=== PATIENT | female | born 1975 | race Caucasian/White ===

== ENCOUNTER 2018-02-15 01:23 | Inpatient (IN) ==
[2018-02-15] MEDS ORDERED: Aluminum/Magnesium/Simethacone Susp 30 ML UDC PO PRN (04:48)
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
--- NOTE | 2018-02-15 14:02 | P.CON ---
History of Present Illness Service: Hospitalist Consult date: 02/15/18 Requesting Physician: Deni Henriquez Reason for Consult: Medical evaluation. Primary Care Provider: UNKNOWN Chief Complaint: Left elbow/shoulder pain History of Present Illness: Ms. Severino is a pleasant 42 year old female who was admitted to psychiatry unit under lizama act due to her attempt to cause self-harm. Hospitalist service was consulted for medical evaluation. Patient reports history of fibromyalgia and chronic neck/back pain. Patient was transferred to [facility] from [facility] where she was very agitated when they tried to give her ativan and geodon. During this struggle, she developed left shoulder and elbow pain. She has her left arm in one position and afraid to move due to pain. At the time of this interview, she denies any chest pain, shortness of breath, abdominal pain, fever, chills. No changes in bowel or bladder habits. Past Medical history: Fibromyalgia, chronic neck/back pain Past surgical history: Wrist surgery, right arm, knee surgery, , tubal ligation Social history: Smokes 1/2 ppd, denies using alcohol or illicit drugs. Family history: Mother with heart disease. Review of Systems All other systems reviewed negative except as stated in HPI PMFSH - History History Provided By: Patient - Tobacco History Second Hand Smoke Exposure: Yes Tobacco Use In Past 30 Days: Yes Smoking Status: Current every day smoker Tobacco Type: Cigarettes - Alcohol History How Often Do You Have a Drink Containing Alcohol: 2 to 4 times a month - Substance Use History Substance History: No History of Abuse - Substance Use Type Other Comment: Patient stated that she has past history with drugs. Patient was unable or unwilling to disclose what type of drug. - Travel History Recent Travel in the [place] Within the Last 8 Weeks: No Recent Travel Out of the Country Within the Last 8 Weeks: No - Immunization History Tetanus Immunization: Unsure Hx Influenza Vaccine This Season: Yes Medications and Allergies Active Medications: Active Medications Acetaminophen (Tylenol) 650 mg PO Q4H PRN PRN Reason: Pain 1-5 or Temp >101F Al Hydrox/Mg Hydrox/Simethicone (Mag-Al Plus Susp Liq) 30 ml PO Q6H PRN PRN Reason: DYSPEPSIA Al Hydroxide/Mg Hydroxide (Milk Of Magnesia Liq) 30 ml PO DAILY PRN PRN Reason: CONSTIPATION Aripiprazole (Abilify) 5 mg PO DAILY [facility] Diphenhydramine HCl (Benadryl) 50 mg PO Q6H PRN PRN Reason: For mild anxiety and/or EPS Diphenhydramine HCl (Benadryl Inj) 50 mg IM Q6H PRN PRN Reason: For mild anxiety and/or EPS Hydroxyzine HCl (Atarax) 50 mg PO Q6H PRN PRN Reason: ANXIETY Nicotine (Habitrol 21 Mg Patch.24 Hr) 1 patch T-DERMAL DAILY [facility] Last Admin: 02/15/18 09:02 Dose: 1 patch Patch Removal (Remove Old Patch) 1 each T-DERMAL HS [facility] Prazosin HCl (Minipress) 1 mg PO HS [facility] Allergies Allergy/AdvReac Type Severity Reaction Status Date / Time codeine Allergy Severe Unverified 10/22/16 22:20 penicillin G Allergy Severe Unverified 10/22/16 22:20 Physical Exam Vital signs: Vital Signs 02/15/18 05:12 Temperature 98.4 F Pulse Rate 82 Respiratory Rate 17 Blood Pressure 142/88 H Pulse Oximetry 96 Intake & Output 02/14/18 02/15/18 02/15/18 18:59 06:59 18:59 Weight 97.2 kg Other: Weight On Admission 97.2 kg Narrative: GENERAL: This is a well-nourished, well-developed patient, in no apparent distress. SKIN: No rashes, ecchymoses or lesions. Warm and dry. HEAD: Atraumatic. Normocephalic. No temporal or scalp tenderness. EYES: Pupils equal round and reactive. No injection or drainage. ENT: Nose without bleeding, purulent drainage or septal hematoma. Airway patent. NECK: Trachea midline. No lymphadenopathy. Supple, nontender, no meningeal signs. CARDIOVASCULAR: Regular rate and rhythm without murmurs, gallops, or rubs. No JVD. RESPIRATORY: Clear to auscultation. Breath sounds equal bilaterally. No wheezes , rales, or rhonchi. GASTROINTESTINAL: Abdomen soft, non-tender, nondistended. No guarding. MUSCULOSKELETAL: Extremities without clubbing, cyanosis, or edema. Pain on movement of left elbow and shoulder joint. No swelling/erythema noted. Skin abrasion noted near the left wrist where she attempted to hurt herself. NEUROLOGICAL: Awake and alert. Cranial nerves II through XII intact. No focal neurological deficits. Normal speech. Assessment and Plan - Plan Ms. Severino is a pleasant 42 year old female who was admitted to [facility] psychiatry unit from [facility] under lizama act due to attempt to cause self harm. Suicidal attempt - management per psychiatry team Left elbow and shoulder pain -I encouraged patient to try to move her elbow and shoulder joint gently and gradually increase movements. -Will start patient on Naproxen 375mg Q8hrs along with Protonix. -I would like to avoid any narcotics if possible. Chronic neck/back pain -Acetaminophen as needed. Other: Will obtain CBC, BMP. Thank you for the consult. We will continue to follow this patient with you.
[2018-02-15] MEDS: ARIPiprazole 5 MG Tablet PO SCH (14:41)
[2018-02-15] MEDS: Acetaminophen 325 MG Tablet PO PRN ×2 (14:41→18:04)
[2018-02-15] MEDS ORDERED: Prazosin HCl 1 MG Capsule PO SCH (21:00)
[2018-02-15] MEDS: Naproxen 375 MG Tablet PO SCH (21:01)
[2018-02-16] MEDS: ARIPiprazole 5 MG Tablet PO SCH (08:32)
[2018-02-16] MEDS: Naproxen 375 MG Tablet PO SCH ×3 (08:33→22:24)
[2018-02-16] MEDS: amLODIPine 5 MG Tablet PO SCH (08:33)
[2018-02-16 08:52] LABS: Baso % (Auto) 0.5 % (0.0-2.0); Eos # (Auto) 0.1 th/mm3 (0.0-0.4); Eos % (Auto) 0.7 % (0.0-4.0); Hematocrit 38.2 % (35.0-46.0); Hemoglobin 13.1 gm/dL (11.6-15.3); Lymph # (Auto) 1.3 th/mm3 (1.0-4.8); Lymph % (Auto) 16.6 % (9.0-44.0); Mean Corpuscular HGB Conc 34.2 % (32.0-36.0); Mean Corpuscular Hemoglobin 30.2 pg (27.0-34.0); Mean Corpuscular Volume 88.3 fL (80.0-100.0); Mean Platelet Volume 8.9 fL (7.0-11.0); Mono # (Auto) 0.6 th/mm3 (0.0-0.9); Mono % (Auto) 7.9 % (0.0-8.0); Neut # (Auto) 5.7 th/mm3 (1.8-7.7); Neut % (Auto) 74.3 % (16.0-70.0); Platelet Count 245 th/mm3 (150-450); Red Blood Count 4.33 mil/mm3 (4.00-5.30); Red Cell Distribution Width 13.6 % (11.6-17.2); White Blood Count 7.6 th/mm3 (4.0-11.0)
[2018-02-16 09:17] LABS: Carbon Dioxide 27.4 meq/L (21.0-32.0)
[2018-02-16] MEDS: Gabapentin 400 MG Capsule PO SCH ×2 (13:08→17:37)
--- NOTE | 2018-02-16 16:08 | P.PNPSY ---
Subjective Chief Complaint: Depresssion with suicidal ideation and plan to cut wrist Remarks: The patient was interviewed in the privacy of their room and accompanied by the assigned nurse. We reviewed the patient's mood, thoughts, and behaviors from overnight and this morning. Nurse reports that the patient has appeared cheerful on the unit and has been cooperative with care. The patient rates her depressed mood today as a 10 out of 10. She rates her anxiety as a 5 out of 10. She continues to endorse passive suicidal ideations plan or intent. She reports a history of bipolar depression as well as PTSD and social anxiety but has been unable to take her psychiatric medications due to lack of access to care. We discussed risks benefits side effects and alternative treatments and she would like to restart Prozac which had been effective for her anxiety as well as helping her mood in the past. She was already started on Abilify on admission and agrees to trial of treatment for her mood. Patient reports that she recently was accepted into vocational rehab and she is hopeful that she will be able to have access to treatment but she is still homeless and is looking for help in that area. Review of Systems All other systems reviewed negative except as stated in HPI Mental Status Examination Appearance: Disheveled Consciousness: Alert Orientation: x4 Motor Activity: Normal gait Speech: Unremarkable Language: Adequate Fund of Knowledge: Adequate Attention and Concentration: Adequate Memory: Unremarkable Mood: Sad, Anxious Affect: Appropriate Thought Process & Associations: Logical, Linear Thought Content: Appropriate Hallucination Type: None Delusion Type: None Suicidal Ideation: Yes (Passive wish) Suicidal Plan: No Suicidal Intention: No Homicidal Ideation: No Homicidal Plan: No Homicidal Intention: No Insight: Fair Judgment: Impulsive Assessment and Plan - Assessment (1) Bipolar depression Code(s): F31.30 - Bipolar disorder, current episode depressed, mild or moderate severity, unspecified Status: Acute (2) PTSD (post-traumatic stress disorder) Code(s): F43.10 - Post-traumatic stress disorder, unspecified Status: Acute - Plan Plan: Initial Assessment and Plan: Will start trial of abilify for bipolar disorder and prazosin for PTSD nightmares and titrate to effective dose. Will consult hospitalist for evaluation due to pt's c/o of pain secondary to ETO received at [facility]. Pt will need referral for outpatient tx upon discharge. As she lives in [facility], [facility] is local [facility]. Pt agrees to voluntary admission. 02/16/2018: Fair response to initial inpatient stabilization, her affect is reportedly improved and she is been calm and cooperative with care but she continues to rate her depression as severe and she continues to endorse passive suicidal thoughts. She has a history of bipolar depression and has thus far tolerated the start of Abilify on admission but continues to struggle with chronic anxiety and reports good efficacy in the past from fluoxetine therefore it will be started in conjunction with the Abilify and prazosin for nightmares. Plan 1. Continue inpatient treatment plan and stabilization. 2. Continue Abilify 5 mg/day for bipolar disorder. 3. Continue Atarax 50 mg every 6 hours as needed for anxiety. 4. Increase prazosin to 2 mg at bedtime for nightmares. 5. Start fluoxetine 20 mg a day for PTSD. 6. Discharge planning: The patient has secured mental health treatment through vocational rehab but will need resources for snf options. Justification for Continued Inpatient Stay: Patient remains an elevated risk for self-harm and will require further inpatient stabilization and preparation of a safe discharge plan. Moving patient to a less restrictive environment at this time may result in decompensation. Request Healthcare Surrogate/Guardian Advocate?: No
[2018-02-16] MEDS: FLUoxetine 20 MG Capsule PO SCH (16:42)
--- NOTE | 2018-02-16 18:30 | P.PN ---
Subjective Interval history: Follow-up visit for chronic back pain. Patient seen and examined in her room in no acute distress. She complains of lower back pain for which she used to see pain management physician for. Has been unable to follow-up with pain management due to financial reasons. She reports that she also needs back surgery however has been unable to do this once again due to financial reasons. She denies any lower extremity weakness, fecal, urinary incontinence or saddle anesthesia. Denies any fevers, chills, nausea, vomiting or diarrhea. Complaints of some acid reflux, this did improve with Protonix. Voices no other acute concerns at the moment. Physical Exam Vital signs: Vital Signs 02/15/18 18:35 02/16/18 06:00 02/16/18 17:18 Temperature 98 F 98.7 F Pulse Rate 99 H 87 Respiratory Rate 18 Blood Pressure 114/69 130/83 Pulse Oximetry 100 98 Intake & Output 02/15/18 02/16/18 02/16/18 18:59 06:59 18:59 Weight 95.4 kg Narrative: GENERAL: This is a well-nourished, well-developed patient, in no apparent distress. SKIN: Warm and dry. Left forearm dressing dry and intact. EYES: Pupils equal/round/reactive. No injection or drainage. ENT: Airway patent. NECK: Trachea midline. No meningeal signs. CARDIOVASCULAR: Regular rate and rhythm without murmurs. RESPIRATORY: Clear to auscultation. Breath sounds equal bilaterally. MUSCULOSKELETAL: Extremities without clubbing, cyanosis, or edema. Left elbow and shoulder joint with no swelling/erythema noted. NEUROLOGICAL: Awake and alert. Cranial nerves II through XII grossly intact. No focal neurological deficits. Normal speech. Results - Labs CBC & Chem 7: 02/16/18 08:20 02/16/18 08:20 Laboratory Results - last 24 hr 02/16/18 02/16/18 08:20 08:20 WBC 7.6 RBC 4.33 Hgb 13.1 Hct 38.2 MCV 88.3 MCH 30.2 MCHC 34.2 RDW 13.6 Plt Count 245 MPV 8.9 Neut % (Auto) 74.3 H Lymph % (Auto) 16.6 [place]aston % (Auto) 7.9 Eos % (Auto) 0.7 Baso % (Auto) 0.5 Neut # (Auto) 5.7 Lymph # (Auto) 1.3 [place]aston # (Auto) 0.6 Eos # (Auto) 0.1 Baso # (Auto) 0.0 WBC Differential . Differential Comment Auto diff final Sodium 138 Potassium 4.0 Chloride 104 Carbon Dioxide 27.4 Anion Gap 7 BUN 23 H Creatinine 1.06 H Estimated GFR 57 L Random Glucose 83 Calcium 9.0 Assessment and Plan - Plan Ms. Severino is a pleasant 42 year old female who was admitted to [facility] psychiatry unit from [facility] under lizama act due to attempt to cause self harm. Suicidal attempt - management per psychiatry team -CBC stable, BMP with slightly elevated BUN, encourage oral hydration. Left elbow and shoulder pain -No complaints today, continue ROM -Continue Naproxen 375mg Q8hrs along with Protonix. -Avoid any narcotics if possible. Chronic neck/back pain -Acetaminophen as needed. -We will need to follow-up with pain management as outpatient. GERD, stable -Continue Protonix, as needed Tums DVT prophylaxis-ambulation Patient medically stable. [facility] will sign off, please reconsult if needed. Discussed Condition With: Patient and RN
[2018-02-16] MEDS: traZODone 100 MG Tablet PO SCH (20:12)
[2018-02-16] MEDS ORDERED: Prazosin HCl 1 MG Capsule PO SCH (21:00)
[2018-02-17] MEDS: Naproxen 375 MG Tablet PO SCH ×3 (06:17→21:24)
[2018-02-17] MEDS: Gabapentin 400 MG Capsule PO SCH ×3 (08:44→17:16)
[2018-02-17] MEDS: FLUoxetine 20 MG Capsule PO SCH (08:45)
[2018-02-17] MEDS: ARIPiprazole 5 MG Tablet PO SCH (08:45)
[2018-02-17] MEDS: amLODIPine 5 MG Tablet PO SCH (08:45)
[2018-02-17] MEDS: Lidocaine 5% Patch T-DERMAL SCH (08:46)
--- NOTE | 2018-02-17 13:59 | P.PNPSY ---
Subjective Chief Complaint: Depresssion with suicidal ideation and plan to cut wrist Remarks: Patient seen for follow-up, chart reviewed, patient discussed with nursing staff ; we reviewed the patient's mood, thoughts, and behaviors from overnight and this morning. Nurse reports the patient has remained calm and cooperative with care and interacting appropriately within the milieu. The patient was observed to sleep 8 hours overnight. The patient admits to improved sleep with recent medication changes but she continues to complain of nightmares and woke up at approximately 430 this morning with a nightmare. Patient denies any headaches lightheadedness this a.m. Patient reports feeling safe on the unit and reports improved mood and hopefulness. Patient reports that she has worked on her own discharge planning and reached out to a local penitentiary to see if they had beds but they are currently full told her to call back again tomorrow. Review of Systems All other systems reviewed negative except as stated in HPI Mental Status Examination Appearance: Disheveled Consciousness: Alert Orientation: x4 Motor Activity: Normal gait Speech: Unremarkable Language: Adequate Fund of Knowledge: Adequate Attention and Concentration: Adequate Memory: Unremarkable Mood: Sad, Anxious Affect: Appropriate Thought Process & Associations: Logical, Linear Thought Content: Appropriate Hallucination Type: None Delusion Type: None Suicidal Ideation: Yes (Passive wish) Suicidal Plan: No Suicidal Intention: No Homicidal Ideation: No Homicidal Plan: No Homicidal Intention: No Insight: Fair Judgment: Impulsive Assessment and Plan - Assessment (1) Bipolar depression Code(s): F31.30 - Bipolar disorder, current episode depressed, mild or moderate severity, unspecified Status: Acute (2) PTSD (post-traumatic stress disorder) Code(s): F43.10 - Post-traumatic stress disorder, unspecified Status: Acute - Plan Plan: Initial Assessment and Plan: Will start trial of abilify for bipolar disorder and prazosin for PTSD nightmares and titrate to effective dose. Will consult hospitalist for evaluation due to pt's c/o of pain secondary to ETO received at [facility]. Pt will need referral for outpatient tx upon discharge. As she lives in [facility], [facility] is local [facility]. Pt agrees to voluntary admission. 02/16/2018: Fair response to initial inpatient stabilization, her affect is reportedly improved and she is been calm and cooperative with care but she continues to rate her depression as severe and she continues to endorse passive suicidal thoughts. She has a history of bipolar depression and has thus far tolerated the start of Abilify on admission but continues to struggle with chronic anxiety and reports good efficacy in the past from fluoxetine therefore it will be started in conjunction with the Abilify and prazosin for nightmares. Plan 1. Continue inpatient treatment plan and stabilization. 2. Continue Abilify 5 mg/day for bipolar disorder. 3. Continue Atarax 50 mg every 6 hours as needed for anxiety. 4. Increase prazosin to 2 mg at bedtime for nightmares. 5. Start fluoxetine 20 mg a day for PTSD. 6. Discharge planning: The patient has secured mental health treatment through vocational rehab but will need resources for penitentiary options. 02/17/2018: Good response to treatment, the patient's sleep has improved and she is feeling safe on the unit and hopeful about her recovery. She continues to endorse passive suicidal thoughts as well as recurrent nightmares therefore further inpatient stabilization needed. Plan 1. Continue inpatient treatment plan and stabilization. 2. Increase prazosin to 4 mg at bedtime for nightmares. 3. Discharge planning: Continue efforts to find community penitentiary, ideally near the [facility] where she has already established care with vocational rehab. Justification for Continued Inpatient Stay: Patient remains an elevated risk for self-harm and will require further inpatient stabilization and preparation of a safe discharge plan. Moving patient to a less restrictive environment at this time may result in decompensation. Request Healthcare Surrogate/Guardian Advocate?: No
[2018-02-17] MEDS: Dimethicone/Oxybenzone-Padimate Lip Balm 4.25 GM Tube TOPICAL PRN (18:24)
[2018-02-17] MEDS: traZODone 100 MG Tablet PO SCH (21:23)
[2018-02-17] MEDS: Prazosin HCl 1 MG Capsule PO SCH (21:23)
[2018-02-18] MEDS: Naproxen 375 MG Tablet PO SCH ×3 (06:17→21:01)
[2018-02-18] MEDS: Gabapentin 400 MG Capsule PO SCH ×3 (08:55→17:53)
[2018-02-18] MEDS: FLUoxetine 20 MG Capsule PO SCH (08:55)
[2018-02-18] MEDS: amLODIPine 5 MG Tablet PO SCH (08:55)
[2018-02-18] MEDS: ARIPiprazole 5 MG Tablet PO SCH (08:55)
[2018-02-18] MEDS: Lidocaine 5% Patch T-DERMAL SCH (08:57)
--- NOTE | 2018-02-18 10:50 | P.PNPSY ---
Subjective Chief Complaint: Depresssion with suicidal ideation and plan to cut wrist Remarks: Patient seen for follow-up, chart reviewed, patient discussed with nursing staff ; we reviewed the patient's mood, thoughts, and behaviors from overnight and this morning. Nursing reports the patient has remained calm and cooperative. She has gone to most of the groups and is interacting appropriately with peers. The patient reports that she slept approximately 6 hours overnight and denies having any nightmares. She associates her improved sleep with taking off her nicotine patch before bedtime. She also denies any symptoms of hypotension since the prazosin was increased to 4 mg last night. Patient reports that today she is not experiencing any active or passive suicidal thoughts. She denies any worsening mood or anxiety and she expressed sincere motivation for discharge pending acceptance into an appropriate care home. Review of Systems All other systems reviewed negative except as stated in HPI Psychiatric: Reports anxiety, Reports depression, Denies hopelessness, Denies panic attacks, Denies paranoia, Denies seeing things others do not see, Denies sensing things others do not sense, Denies thoughts of hurting/killing yourself Mental Status Examination Appearance: Appropriate Consciousness: Alert Orientation: x4 Motor Activity: Normal gait Speech: Unremarkable Language: Adequate Fund of Knowledge: Adequate Attention and Concentration: Adequate Memory: Unremarkable Mood: Sad, Anxious Affect: Appropriate Thought Process & Associations: Logical, Linear Thought Content: Appropriate Hallucination Type: None Delusion Type: None Suicidal Ideation: No Suicidal Plan: No Suicidal Intention: No Homicidal Ideation: No Homicidal Plan: No Homicidal Intention: No Insight: Fair Judgment: Adequate Assessment and Plan - Assessment (1) Bipolar depression Code(s): F31.30 - Bipolar disorder, current episode depressed, mild or moderate severity, unspecified Status: Acute (2) PTSD (post-traumatic stress disorder) Code(s): F43.10 - Post-traumatic stress disorder, unspecified Status: Acute - Plan Plan: Initial Assessment and Plan: Will start trial of abilify for bipolar disorder and prazosin for PTSD nightmares and titrate to effective dose. Will consult hospitalist for evaluation due to pt's c/o of pain secondary to ETO received at [facility]. Pt will need referral for outpatient tx upon discharge. As she lives in [facility], [facility] is local [facility]. Pt agrees to voluntary admission. 02/16/2018: Fair response to initial inpatient stabilization, her affect is reportedly improved and she is been calm and cooperative with care but she continues to rate her depression as severe and she continues to endorse passive suicidal thoughts. She has a history of bipolar depression and has thus far tolerated the start of Abilify on admission but continues to struggle with chronic anxiety and reports good efficacy in the past from fluoxetine therefore it will be started in conjunction with the Abilify and prazosin for nightmares. Plan 1. Continue inpatient treatment plan and stabilization. 2. Continue Abilify 5 mg/day for bipolar disorder. 3. Continue Atarax 50 mg every 6 hours as needed for anxiety. 4. Increase prazosin to 2 mg at bedtime for nightmares. 5. Start fluoxetine 20 mg a day for PTSD. 6. Discharge planning: The patient has secured mental health treatment through vocational rehab but will need resources for care home options. 02/17/2018: Good response to treatment, the patient's sleep has improved and she is feeling safe on the unit and hopeful about her recovery. She continues to endorse passive suicidal thoughts as well as recurrent nightmares therefore further inpatient stabilization needed. Plan 1. Continue inpatient treatment plan and stabilization. 2. Increase prazosin to 4 mg at bedtime for nightmares. 3. Discharge planning: Continue efforts to find community care home, ideally near the [facility] where she has already established care with vocational rehab. 02/18/2018: Good response to treatment, the patient is reporting remission of suicidal ideations for the first time since admission. She is tolerating current medication and is motivated for discharge but if discharged to the streets she would likely become hopeless and helpless and suicidal again therefore every effort will be made to find safe care home today in anticipation of discharge tomorrow. Justification for Continued Inpatient Stay: Patient remains an elevated risk for self-harm and will require further inpatient stabilization and preparation of a safe discharge plan. Moving patient to a less restrictive environment at this time may result in decompensation. Request Healthcare Surrogate/Guardian Advocate?: No
[2018-02-18 14:27] LABS: Bacteria,Urine Rare /hpf; Bilirubin,Urine Negative (Negative); Clarity,Urine Hazy (Clear); Color,Urine Yellow (Yellw/Straw); Glucose,Urine (UA) Negative (Negative); Leukocyte Esterase,Urine Negative (Negative); Nitrite,Urine Negative (Negative); Specific Gravity,Urine 1.029 (1.002-1.035); Squamous Epithelial Cell,Urine 8 /hpf (0-5)
[2018-02-18] MEDS: Acetaminophen 325 MG Tablet PO PRN (17:56)
[2018-02-18] MEDS: traZODone 100 MG Tablet PO SCH (20:59)
[2018-02-18] MEDS: Prazosin HCl 1 MG Capsule PO SCH (21:01)
[2018-02-18] MEDS: Dimethicone/Oxybenzone-Padimate Lip Balm 4.25 GM Tube TOPICAL PRN (21:21)
[2018-02-19] MEDS: Naproxen 375 MG Tablet PO SCH ×3 (05:59→21:10)
[2018-02-19] MEDS: ARIPiprazole 5 MG Tablet PO SCH (08:30)
[2018-02-19] MEDS: Lidocaine 5% Patch T-DERMAL SCH (08:31)
[2018-02-19] MEDS: Gabapentin 400 MG Capsule PO SCH ×3 (08:31→18:09)
[2018-02-19] MEDS: amLODIPine 5 MG Tablet PO SCH (08:31)
[2018-02-19] MEDS: FLUoxetine 20 MG Capsule PO SCH (08:53)
--- NOTE | 2018-02-19 11:39 | P.PNPSY ---
Subjective Chief Complaint: Depresssion with suicidal ideation and plan to cut wrist Remarks: Patient seen for follow-up, chart reviewed, patient discussed with nursing staff ; we reviewed the patient's mood, thoughts, and behaviors from overnight and this morning. Nurse reports that the patient started complaining of left lower quadrant pain yesterday afternoon and that has not responded to treatments with NSAIDs. Patient had a UA last evening that was negative. Patient reports that she has a history of intermittent lower quadrant pain and has been diagnosed with polycystic ovarian syndrome. She expressed understanding that she should follow up as an outpatient with a [facility] if she believes this condition is worsening. Patient was observed during recreation therapy and affect was bright and she was able to play on the interactive [employer] game. The patient continues to deny active or passive suicidal ideations. She rates her depression as 6 out of 10 and her anxiety as 6 out of 10. She expressed understanding that she will need to be discharged even if placement cannot be secured. The patient's affect turned dysphoric at the notion that she would be homeless again but she denied recurrence of suicidal thoughts. Review of Systems Psychiatric: Reports depression, Reports hopelessness, Denies abnormal sleep pattern, Denies difficulty concentrating, Denies hearing things others do not hear, Denies lack of enjoyment, Denies seeing things others do not see, Denies sensing things others do not sense, Denies thoughts of hurting/killing others, Denies thoughts of hurting/killing yourself Mental Status Examination Appearance: Appropriate Consciousness: Alert Orientation: x4 Motor Activity: Normal gait Speech: Unremarkable Language: Adequate Fund of Knowledge: Adequate Attention and Concentration: Adequate Memory: Unremarkable Mood: Anxious Affect: Appropriate Thought Process & Associations: Logical, Linear Thought Content: Appropriate Hallucination Type: None Delusion Type: None Suicidal Ideation: No Suicidal Plan: No Suicidal Intention: No Homicidal Ideation: No Homicidal Plan: No Homicidal Intention: No Insight: Fair Judgment: Adequate Assessment and Plan - Assessment (1) Bipolar depression Code(s): F31.30 - Bipolar disorder, current episode depressed, mild or moderate severity, unspecified Status: Acute (2) PTSD (post-traumatic stress disorder) Code(s): F43.10 - Post-traumatic stress disorder, unspecified Status: Acute - Plan Plan: Initial Assessment and Plan: Will start trial of abilify for bipolar disorder and prazosin for PTSD nightmares and titrate to effective dose. Will consult hospitalist for evaluation due to pt's c/o of pain secondary to ETO received at [facility]. Pt will need referral for outpatient tx upon discharge. As she lives in [facility], [facility] is local HC. Pt agrees to voluntary admission. 02/16/2018: Fair response to initial inpatient stabilization, her affect is reportedly improved and she is been calm and cooperative with care but she continues to rate her depression as severe and she continues to endorse passive suicidal thoughts. She has a history of bipolar depression and has thus far tolerated the start of Abilify on admission but continues to struggle with chronic anxiety and reports good efficacy in the past from fluoxetine therefore it will be started in conjunction with the Abilify and prazosin for nightmares. Plan 1. Continue inpatient treatment plan and stabilization. 2. Continue Abilify 5 mg/day for bipolar disorder. 3. Continue Atarax 50 mg every 6 hours as needed for anxiety. 4. Increase prazosin to 2 mg at bedtime for nightmares. 5. Start fluoxetine 20 mg a day for PTSD. 6. Discharge planning: The patient has secured mental health treatment through vocational rehab but will need resources for fdc options. 02/17/2018: Good response to treatment, the patient's sleep has improved and she is feeling safe on the unit and hopeful about her recovery. She continues to endorse passive suicidal thoughts as well as recurrent nightmares therefore further inpatient stabilization needed. Plan 1. Continue inpatient treatment plan and stabilization. 2. Increase prazosin to 4 mg at bedtime for nightmares. 3. Discharge planning: Continue efforts to find community fdc, ideally near the [facility] where she has already established care with vocational rehab. 02/18/2018: Good response to treatment, the patient is reporting remission of suicidal ideations for the first time since admission. She is tolerating current medication and is motivated for discharge but if discharged to the streets she would likely become hopeless and helpless and suicidal again therefore every effort will be made to find safe fdc today in anticipation of discharge tomorrow. 02/19/2018: Good response to treatment, the patient has experienced a remission of suicidal ideations for greater than 24 hours she is reporting significant decline in the severity of her depressed mood and anxiety. She continues to make efforts to find fdc in the local area where she is already secured focused rehab funding for treatment. She continues to be a substantial risk of self-harm due to multiple suicide attempts in the past with recent attempt by cutting her wrist and continued severe psychosocial stressors. Continue current treatment and inpatient stabilization. Anticipate discharge tomorrow if she remains free of suicidal ideations and continues to make progress in her treatment of depression. Justification for Continued Inpatient Stay: Patient remains an elevated risk for self-harm and will require further inpatient stabilization and preparation of a safe discharge plan. Moving patient to a less restrictive environment at this time may result in decompensation. Request Healthcare Surrogate/Guardian Advocate?: No
[2018-02-19] MEDS: Methocarbamol 500 MG Tablet PO PRN (15:26)
[2018-02-19] MEDS: traZODone 100 MG Tablet PO SCH (20:19)
[2018-02-19] MEDS: Prazosin HCl 1 MG Capsule PO SCH (20:19)
[2018-02-19] MEDS: Acetaminophen 325 MG Tablet PO PRN (21:10)
[2018-02-19] MEDS: Dimethicone/Oxybenzone-Padimate Lip Balm 4.25 GM Tube TOPICAL PRN (21:11)
[2018-02-20] MEDS: Naproxen 375 MG Tablet PO SCH ×3 (06:07→22:06)
[2018-02-20] MEDS: FLUoxetine 20 MG Capsule PO SCH (08:06)
[2018-02-20] MEDS: ARIPiprazole 5 MG Tablet PO SCH (08:06)
[2018-02-20] MEDS: Gabapentin 400 MG Capsule PO SCH ×3 (08:06→17:06)
[2018-02-20] MEDS: amLODIPine 5 MG Tablet PO SCH (08:06)
[2018-02-20] MEDS: Lidocaine 5% Patch T-DERMAL SCH (08:23)
[2018-02-20] MEDS: Methocarbamol 500 MG Tablet PO PRN ×2 (09:21→17:06)
--- NOTE | 2018-02-20 12:07 | P.PNPSY ---
Subjective Chief Complaint: Depresssion with suicidal ideation and plan to cut wrist Remarks: Patient seen for follow-up, chart reviewed, patient discussed with nursing staff ; we reviewed the patient's mood, thoughts, and behaviors from overnight and this morning. Nurse reports that patient continues to complain of left lower quadrant pain but had a positive response to a dose of Robaxin last evening and slept very well overnight. The patient was seen by corporate event planner this morning and she admitted to suicidal ideations within intent to harm herself she had to be discharged today and live on the streets. The patient was seen along with the unit manager social; she was observed on the phone talking to a local jail to see if they had beds available. She reports that she plans to actively continue seeking placement in either [facility] or with a residential treatment center for dual diagnosis. The patient was provided information about sober living of [facility] and she agreed to make contact with them today for an interview possible placement. Patient reports that her mood and anxiety have definitely improved since admission and she is sleeping the best she ever has in her life but the thought of being discharged but homeless triggers suicidal thoughts. Patient expressed understanding that she must continue to seek out suitable jail or residential treatment and will be reconsidered for discharge early next week. Mental Status Examination Appearance: Appropriate Consciousness: Alert Orientation: x4 Motor Activity: Normal gait Speech: Unremarkable Language: Adequate Fund of Knowledge: Adequate Attention and Concentration: Adequate Memory: Unremarkable Mood: Anxious Affect: Appropriate Thought Process & Associations: Logical, Linear Thought Content: Appropriate Hallucination Type: None Delusion Type: None Suicidal Ideation: Yes (Triggered by discussing her discharge and uncertainty of jail) Suicidal Plan: No Suicidal Intention: No Homicidal Ideation: No Homicidal Plan: No Homicidal Intention: No Insight: Fair Judgment: Adequate Assessment and Plan - Assessment (1) Bipolar depression Code(s): F31.30 - Bipolar disorder, current episode depressed, mild or moderate severity, unspecified Status: Acute (2) PTSD (post-traumatic stress disorder) Code(s): F43.10 - Post-traumatic stress disorder, unspecified Status: Acute - Plan Plan: Initial Assessment and Plan: Will start trial of abilify for bipolar disorder and prazosin for PTSD nightmares and titrate to effective dose. Will consult hospitalist for evaluation due to pt's c/o of pain secondary to ETO received at [facility]. Pt will need referral for outpatient tx upon discharge. As she lives in [facility], [facility] is local HC. Pt agrees to voluntary admission. 02/16/2018: Fair response to initial inpatient stabilization, her affect is reportedly improved and she is been calm and cooperative with care but she continues to rate her depression as severe and she continues to endorse passive suicidal thoughts. She has a history of bipolar depression and has thus far tolerated the start of Abilify on admission but continues to struggle with chronic anxiety and reports good efficacy in the past from fluoxetine therefore it will be started in conjunction with the Abilify and prazosin for nightmares. Plan 1. Continue inpatient treatment plan and stabilization. 2. Continue Abilify 5 mg/day for bipolar disorder. 3. Continue Atarax 50 mg every 6 hours as needed for anxiety. 4. Increase prazosin to 2 mg at bedtime for nightmares. 5. Start fluoxetine 20 mg a day for PTSD. 6. Discharge planning: The patient has secured mental health treatment through vocational rehab but will need resources for jail options. 02/17/2018: Good response to treatment, the patient's sleep has improved and she is feeling safe on the unit and hopeful about her recovery. She continues to endorse passive suicidal thoughts as well as recurrent nightmares therefore further inpatient stabilization needed. Plan 1. Continue inpatient treatment plan and stabilization. 2. Increase prazosin to 4 mg at bedtime for nightmares. 3. Discharge planning: Continue efforts to find community jail, ideally near the [facility] where she has already established care with vocational rehab. 02/18/2018: Good response to treatment, the patient is reporting remission of suicidal ideations for the first time since admission. She is tolerating current medication and is motivated for discharge but if discharged to the streets she would likely become hopeless and helpless and suicidal again therefore every effort will be made to find safe jail today in anticipation of discharge tomorrow. 02/19/2018: Good response to treatment, the patient has experienced a remission of suicidal ideations for greater than 24 hours she is reporting significant decline in the severity of her depressed mood and anxiety. She continues to make efforts to find jail in the local area where she is already secured focused rehab funding for treatment. She continues to be a substantial risk of self-harm due to multiple suicide attempts in the past with recent attempt by cutting her wrist and continued severe psychosocial stressors. Continue current treatment and inpatient stabilization. Anticipate discharge tomorrow if she remains free of suicidal ideations and continues to make progress in her treatment of depression. 02/20/2018: Good response to treatment, the patient has a experienced significant improvement of her symptoms of depression and anxiety and her sleep has stabilized. The patient remains a high risk for suicide due to her severe psychosocial stressors and history of multiple suicide attempts and the recurrence of active suicidal ideations when faced with the uncertainty of homelessness. Continue current treatment and inpatient stabilization, providing support and her efforts to secure appropriate jail and/or residential treatment. Anticipate discharge early next week. Justification for Continued Inpatient Stay: Patient remains an elevated risk for self-harm and will require further inpatient stabilization and preparation of a safe discharge plan. Moving patient to a less restrictive environment at this time may result in decompensation. Request Healthcare Surrogate/Guardian Advocate?: No
[2018-02-20] MEDS: Prazosin HCl 1 MG Capsule PO SCH (20:42)
[2018-02-20] MEDS: traZODone 100 MG Tablet PO SCH (20:42)
[2018-02-21] MEDS: Naproxen 375 MG Tablet PO SCH ×3 (05:14→21:25)
[2018-02-21] MEDS: Lidocaine 5% Patch T-DERMAL SCH (08:19)
[2018-02-21] MEDS: ARIPiprazole 5 MG Tablet PO SCH (08:21)
[2018-02-21] MEDS: Gabapentin 400 MG Capsule PO SCH ×2 (08:21→12:36)
[2018-02-21] MEDS: amLODIPine 5 MG Tablet PO SCH (08:21)
[2018-02-21] MEDS: FLUoxetine 20 MG Capsule PO SCH (08:22)
--- NOTE | 2018-02-21 13:22 | P.PNPSY ---
Subjective Chief Complaint: Depresssion with suicidal ideation and plan to cut wrist Remarks: Reviewed electronic medical records and discussed case with staff. Follow-up was conducted in the activities area. Patient has been compliant with her medications and had no behavioral issues. She reports that she is "very, very anxious". When asked what she has to be anxious about she states that she is leaving Friday to go to her new home and while she is excited that cause her some social anxiety. We briefly discussed with the worst thing is that could happen and how she would deal with that. She seems to relax somewhat about it and states that she wants to improve upon her life. She is denying any side effects from medication. Stating she eats and sleeps well. Mental Status Examination Appearance: Appropriate Consciousness: Alert Orientation: x4 Motor Activity: Normal gait Speech: Unremarkable Language: Adequate Fund of Knowledge: Adequate Attention and Concentration: Adequate Memory: Unremarkable Mood: Anxious Affect: Appropriate Thought Process & Associations: Logical, Linear Thought Content: Appropriate Hallucination Type: None Delusion Type: None Suicidal Ideation: Yes (Triggered by discussing her discharge and uncertainty of group home) Suicidal Plan: No Suicidal Intention: No Homicidal Ideation: No Homicidal Plan: No Homicidal Intention: No Insight: Fair Judgment: Adequate Assessment and Plan - Assessment (1) Bipolar depression Code(s): F31.30 - Bipolar disorder, current episode depressed, mild or moderate severity, unspecified Status: Acute - Plan Plan: Patient will be reevaluated by the attending psychiatrist. Continue with current treatment plan. Justification for Continued Inpatient Stay: Moving this patient to a less restrictive environment would likely result in decompensation. Request Healthcare Surrogate/Guardian Advocate?: No
[2018-02-21] MEDS: Methocarbamol 500 MG Tablet PO PRN (19:40)
[2018-02-21] MEDS: traZODone 100 MG Tablet PO SCH (20:21)
[2018-02-21] MEDS: Prazosin HCl 1 MG Capsule PO SCH (20:21)
[2018-02-22] MEDS: Naproxen 375 MG Tablet PO SCH ×3 (09:05→21:17)
[2018-02-22] MEDS: FLUoxetine 20 MG Capsule PO SCH (09:05)
[2018-02-22] MEDS: Gabapentin 400 MG Capsule PO SCH ×4 (09:06→17:17)
[2018-02-22] MEDS: amLODIPine 5 MG Tablet PO SCH (09:06)
[2018-02-22] MEDS: ARIPiprazole 5 MG Tablet PO SCH (09:06)
[2018-02-22] MEDS: Lidocaine 5% Patch T-DERMAL SCH (11:54)
[2018-02-22] MEDS: Methocarbamol 500 MG Tablet PO PRN (12:02)
--- NOTE | 2018-02-22 14:13 | P.PNPSY ---
Subjective Chief Complaint: Depresssion with suicidal ideation and plan to cut wrist Remarks: Patient seen and examined with nurse in weekend coverage for Dr. Ravi. Chart reviewed. Case discussed with nursing staff. On my examination today, the patient reports that she is excited to go to sober living with anticipated discharge date of tomorrow. She does report some mild anticipatory anxiety with associated nausea but otherwise is very much looking forward to this transition. She denies any ongoing suicidal ideation at this time. Affect is bright and euthymic. Regarding the hospitalization, the patient says "it has helped to me." She reports that she is sleeping well. She denies any side effects from medications. Besides some mild nausea, no acute physical complaints. Vital Signs Temp Pulse Resp BP Pulse Ox 02/22/18 06:22 98.2 F 70 18 125/67 99 02/21/18 17:06 98.1 F 77 18 131/83 99 Labs reviewed. No new labs. Review of Systems All other systems reviewed negative except as stated in HPI Mental Status Examination Appearance: Appropriate Consciousness: Alert Orientation: x4 Motor Activity: Normal gait, Other (No motor abnormalities noted) Speech: Unremarkable Language: Adequate Fund of Knowledge: Adequate Attention and Concentration: Adequate Memory: Unremarkable Mood: Anxious (Mild) Affect: Appropriate, Euthymic Thought Process & Associations: Intact, Logical, Linear Thought Content: Appropriate Hallucination Type: None Delusion Type: None Suicidal Ideation: No Suicidal Plan: No Suicidal Intention: No Homicidal Ideation: No Homicidal Plan: No Homicidal Intention: No Insight: Fair Judgment: Adequate Assessment and Plan - Assessment (1) Bipolar depression Code(s): F31.30 - Bipolar disorder, current episode depressed, mild or moderate severity, unspecified Status: Acute (2) PTSD (post-traumatic stress disorder) Code(s): F43.10 - Post-traumatic stress disorder, unspecified Status: Acute - Plan Plan: Continue Prozac and Abilify as ordered. Monitor for any worsening of nausea, which is presently mild and possibly related to anxiety. Continue to monitor on the inpatient unit. Continue other medications and care as ordered. Justification for Continued Inpatient Stay: Per Dr. Ravi Discharge Planning: Per Dr. Ravi. Request Healthcare Surrogate/Guardian Advocate?: No
[2018-02-22] MEDS: traZODone 100 MG Tablet PO SCH (21:17)
[2018-02-22] MEDS: Prazosin HCl 1 MG Capsule PO SCH (21:18)
[2018-02-23] MEDS: Naproxen 375 MG Tablet PO SCH (05:10)
[2018-02-23] MEDS: FLUoxetine 20 MG Capsule PO SCH (08:27)
[2018-02-23] MEDS: Gabapentin 400 MG Capsule PO SCH (08:27)
[2018-02-23] MEDS: ARIPiprazole 5 MG Tablet PO SCH (08:27)
[2018-02-23] MEDS: Lidocaine 5% Patch T-DERMAL SCH (08:28)
[2018-02-23] MEDS: amLODIPine 5 MG Tablet PO SCH (08:28)
[2018-02-23] MEDS: Methocarbamol 500 MG Tablet PO PRN (09:04)
[2018-02-23] MEDS ORDERED: Gabapentin 100 MG Capsule PO ONE (10:24)
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
== END 2018-02-23 12:40 | disposition home or self-care (01) ==
LOC: H270 04:36 → H260 02-16 12:02
PROVIDERS: ADMIT Psychiatry & Neurology Psychiatry; ATTEND Psychiatry & Neurology Psychiatry
CPT/HCPCS: Q0163